=== PATIENT | female | born 1985 | race Caucasian/White ===

== ENCOUNTER → 2016-10-14 | Outpatient (CLI) | payer MEDICARE, MEDICAID ==
[2016-10-14 14:48] LABS: MEAN CORPUSCULAR HEMOGLOBIN 21.1 pg (27.0-33.0); MEAN CORPUSCULAR HGB CONC 29.7 g/dl (32.0-36.5); PLATELET COUNT, AUTOMATED 218 k/mm3 (150-450); RED CELL DISTRIBUTION WIDTH 15.1 % (11.5-14.5); WHITE BLOOD COUNT 8.4 K/mm3 (4.0-10.0)
[2016-10-14 15:25] LABS: ERYTHROCYTE SEDIMENTATION RATE 16 mm/hr (0-20)
[2016-10-14 16:13] LABS: BASO % 0.9 % (0.0-1.0); EOS % 1.3 % (0.0-3.0); LARGE UNSTAINED CELL % 1.5 % (0.0-4.0); MONO % 4.7 % (0.0-5.0); NEUTROPHILS % 69.7 % (36.0-66.0)
[2016-10-14 16:14] LABS: NEUTROPHILS # 5.9 K/mm3 (1.8-7.7)
[2016-10-14 16:15] LABS: LYMPH # 1.8 K/mm3 (1.5-4.5)
[2016-10-14 16:16] LABS: EOS # 0.1 K/mm3 (0.0-0.50); MONO # 0.4 K/mm3 (0.0-0.8)
[2016-10-14 16:17] LABS: LARGE UNSTAINED CELL # 0.1 K/mm3 (0.0-0.4)
[2016-10-14 16:18] LABS: BASO # 0.1 K/mm3 (0.0-0.2); DIFF SLIDE NUMBER 248
[2016-10-14 19:34] LABS: ANISOCYTOSIS 1+; HYPOCHROMASIA 2+; MICROCYTOSIS 3+
== END ==
LOC: M LAB 12:56
PROVIDERS: ATTEND Internal Medicine Infectious Disease
DX: T84.50XD Infection and inflammatory reaction due to unspecified internal joint prosthesis, subsequent encounter (principal); Y83.1 Surgical operation with implant of artificial internal device as the cause of abnormal reaction of the patient, or of later complication, without mention of misadventure at the time of the procedure

== ENCOUNTER → 2016-10-28 | Outpatient (CLI) | payer MEDICARE, MEDICAID ==
[2016-10-28 11:54] LABS: BASO % 0.3 % (0.0-1.0); EOS # 0.1 K/mm3 (0.0-0.50); EOS % 1.7 % (0.0-3.0); LARGE UNSTAINED CELL # 0.1 K/mm3 (0.0-0.4); LARGE UNSTAINED CELL % 1.8 % (0.0-4.0); LYMPH # 1.8 K/mm3 (1.5-4.5); LYMPH % 24.8 % (24.0-44.0); MEAN CORPUSCULAR HEMOGLOBIN 20.2 pg (27.0-33.0); MEAN CORPUSCULAR HGB CONC 28.8 g/dl (32.0-36.5); MEAN CORPUSCULAR VOLUME 70.2 fl (80.0-96.0); MONO # 0.4 K/mm3 (0.0-0.8); MONO % 4.8 % (0.0-5.0); NEUTROPHILS # 4.9 K/mm3 (1.8-7.7); NEUTROPHILS % 66.6 % (36.0-66.0); PLATELET COUNT, AUTOMATED 235 k/mm3 (150-450); RED CELL DISTRIBUTION WIDTH 15.3 % (11.5-14.5); WHITE BLOOD COUNT 7.4 K/mm3 (4.0-10.0)
[2016-10-28 12:15] LABS: ERYTHROCYTE SEDIMENTATION RATE 21 mm/hr (0-20)
== END ==
LOC: M LAB 11:07
PROVIDERS: ATTEND Nurse Practitioner
DX: M86.652 Other chronic osteomyelitis, left thigh (principal)

== ENCOUNTER → 2016-12-21 | Outpatient (CLI) | payer MEDICARE, MEDICAID ==
[2016-12-21 14:59] LABS: MEAN CORPUSCULAR HEMOGLOBIN 19.8 pg (27.0-33.0); MEAN CORPUSCULAR HGB CONC 28.5 g/dl (32.0-36.5); MEAN CORPUSCULAR VOLUME 69.4 fl (80.0-96.0); PLATELET COUNT, AUTOMATED 274 k/mm3 (150-450); RED CELL DISTRIBUTION WIDTH 16.8 % (11.5-14.5); WHITE BLOOD COUNT 7.3 K/mm3 (4.0-10.0)
[2016-12-21 15:59] LABS: ERYTHROCYTE SEDIMENTATION RATE 44 mm/hr (0-20)
[2016-12-21 16:27] LABS: BASOPHILS 1 % (0-4); EOSINOPHILS 1 % (0-5); HYPOCHROMASIA 2+; MICROCYTOSIS 3+
[2016-12-21 16:28] LABS: ANISOCYTOSIS 2+
== END ==
LOC: M LAB 14:28
PROVIDERS: ATTEND Nurse Practitioner
DX: M86.652 Other chronic osteomyelitis, left thigh (principal)

== ENCOUNTER → 2017-01-04 | Outpatient (CLI) | payer MEDICARE, MEDICAID ==
[2017-01-04 14:09] LABS: BASO % 0.5 % (0.0-1.0); EOS # 0.1 K/mm3 (0.0-0.50); LARGE UNSTAINED CELL # 0.1 K/mm3 (0.0-0.4); LARGE UNSTAINED CELL % 1.6 % (0.0-4.0); LYMPH # 1.7 K/mm3 (1.5-4.5); LYMPH % 21.8 % (24.0-44.0); MEAN CORPUSCULAR HEMOGLOBIN 20.2 pg (27.0-33.0); MEAN CORPUSCULAR HGB CONC 28.9 g/dl (32.0-36.5); MONO # 0.3 K/mm3 (0.0-0.8); MONO % 4.5 % (0.0-5.0); NEUTROPHILS # 5.1 K/mm3 (1.8-7.7); NEUTROPHILS % 70.7 % (36.0-66.0); PLATELET COUNT, AUTOMATED 202 k/mm3 (150-450); RED CELL DISTRIBUTION WIDTH 16.7 % (11.5-14.5); WHITE BLOOD COUNT 7.3 K/mm3 (4.0-10.0)
[2017-01-04 14:27] LABS: ERYTHROCYTE SEDIMENTATION RATE 14 mm/hr (0-20)
[2017-01-04 14:32] LABS: ADD MORPHOLOGY? YES
[2017-01-04 16:02] LABS: ANISOCYTOSIS 1+; HYPOCHROMASIA 1+; MICROCYTOSIS 2+
== END ==
LOC: M LAB 13:13
PROVIDERS: ATTEND Nurse Practitioner
DX: M86.652 Other chronic osteomyelitis, left thigh (principal)

== ENCOUNTER → 2017-01-18 | Outpatient (CLI) | payer MEDICARE, MEDICAID ==
[2017-01-18 10:44] LABS: BASO % 0.4 % (0.0-1.0); EOS # 0.1 K/mm3 (0.0-0.50); EOS % 1.9 % (0.0-3.0); LARGE UNSTAINED CELL # 0.1 K/mm3 (0.0-0.4); LARGE UNSTAINED CELL % 1.7 % (0.0-4.0); LYMPH # 1.5 K/mm3 (1.5-4.5); MEAN CORPUSCULAR HEMOGLOBIN 20.2 pg (27.0-33.0); MEAN CORPUSCULAR HGB CONC 29.2 g/dl (32.0-36.5); MONO # 0.2 K/mm3 (0.0-0.8); MONO % 3.8 % (0.0-5.0); NEUTROPHILS # 4.1 K/mm3 (1.8-7.7); NEUTROPHILS % 68.1 % (36.0-66.0); PLATELET COUNT, AUTOMATED 215 k/mm3 (150-450); RED CELL DISTRIBUTION WIDTH 16.5 % (11.5-14.5); WHITE BLOOD COUNT 6.1 K/mm3 (4.0-10.0)
[2017-01-18 10:51] LABS: ADD MORPHOLOGY? YES
[2017-01-18 11:21] LABS: ERYTHROCYTE SEDIMENTATION RATE 16 mm/hr (0-20)
[2017-01-18 11:29] LABS: HYPOCHROMASIA 2+; MICROCYTOSIS 2+; POLYCHROMASIA 1+
== END ==
LOC: M LAB 10:12
PROVIDERS: ATTEND Nurse Practitioner
DX: M86.652 Other chronic osteomyelitis, left thigh (principal)

== ENCOUNTER → 2017-03-15 | Outpatient (CLI) | payer MEDICARE, MEDICAID ==
[2017-03-15 10:59] LABS: BASO % 0.5 % (0.0-1.0); EOS # 0.1 K/mm3 (0.0-0.50); LARGE UNSTAINED CELL # 0.1 K/mm3 (0.0-0.4); LARGE UNSTAINED CELL % 1.3 % (0.0-4.0); LYMPH # 1.9 K/mm3 (1.5-4.5); LYMPH % 22.8 % (24.0-44.0); MEAN CORPUSCULAR HEMOGLOBIN 20.2 pg (27.0-33.0); MEAN CORPUSCULAR HGB CONC 29.4 g/dl (32.0-36.5); MEAN CORPUSCULAR VOLUME 68.7 fl (80.0-96.0); MONO # 0.5 K/mm3 (0.0-0.8); MONO % 5.9 % (0.0-5.0); NEUTROPHILS # 5.6 K/mm3 (1.8-7.7); NEUTROPHILS % 68.4 % (36.0-66.0); PLATELET COUNT, AUTOMATED 233 k/mm3 (150-450); RED CELL DISTRIBUTION WIDTH 16.4 % (11.5-14.5); WHITE BLOOD COUNT 8.2 K/mm3 (4.0-10.0)
[2017-03-15 11:32] LABS: ERYTHROCYTE SEDIMENTATION RATE 14 mm/hr (0-20)
== END ==
LOC: M LAB 10:12
PROVIDERS: ATTEND Nurse Practitioner
DX: M86.652 Other chronic osteomyelitis, left thigh (principal)

== ENCOUNTER → 2017-05-04 | Outpatient (REF) | payer MEDICARE, MEDICAID ==
[2017-05-04 11:00] LABS: URINE PHOSPHOROUS 85.2 MG/DL
[2017-05-04 11:16] LABS: CALCIUM, URINE 12.4 MG/DL
[2017-05-12 14:15] LABS: CREATININE URINE 135.2 mg/dL (Not Estab.)
== END ==
LOC: M LAB REF 09:32
PROVIDERS: ATTEND Internal Medicine Endocrinology, Diabetes & Metabolism
DX: M85.052 Fibrous dysplasia (monostotic), left thigh (principal); Z86.39 Personal history of other endocrine, nutritional and metabolic disease; E66.9 Obesity, unspecified; Z91.89 Other specified personal risk factors, not elsewhere classified

== ENCOUNTER → 2017-05-14 | Outpatient (CLI) | payer MEDICARE, MEDICAID ==
[2017-05-14 12:32] LABS: ADD MANUAL DIFFER YES; MEAN CORPUSCULAR HEMOGLOBIN 19.7 pg (27.0-33.0); MEAN CORPUSCULAR HGB CONC 29.4 g/dl (32.0-36.5); MEAN CORPUSCULAR VOLUME 67.1 fl (80.0-96.0); PLATELET COUNT, AUTOMATED 249 k/mm3 (150-450); RED CELL DISTRIBUTION WIDTH 16.8 % (11.5-14.5)
[2017-05-14 13:00] LABS: EOSINOPHILS 1 % (0-5)
[2017-05-14 13:01] LABS: ANISOCYTOSIS 1+; HYPOCHROMASIA 2+; TEAR DROP CELLS 1+
[2017-05-14 13:02] LABS: ERYTHROCYTE SEDIMENTATION RATE 21 mm/hr (0-20)
== END ==
LOC: M LAB 11:33
PROVIDERS: ATTEND Nurse Practitioner
DX: M85.652 Other cyst of bone, left thigh (principal)

== ENCOUNTER → 2017-06-01 | Outpatient (CLI) | payer MEDICARE, MEDICAID ==
[2017-06-01 14:54] LABS: FREE T4 1.09 NG/DL (0.76-1.46)
== END ==
LOC: M LAB 13:41
PROVIDERS: ATTEND Internal Medicine Endocrinology, Diabetes & Metabolism
DX: Z86.39 Personal history of other endocrine, nutritional and metabolic disease (principal)

== ENCOUNTER → 2017-07-16 | Outpatient (CLI) | payer MEDICARE, MEDICAID ==
[2017-07-16 16:55] LABS: ANION GAP 8 MEQ/L (8-16); BLOOD UREA NITROGEN 12 MG/DL (7-18); CALCIUM LEVEL 9.3 MG/DL (8.5-10.1); CARBON DIOXIDE LEVEL 28 MEQ/L (21-32); CHLORIDE LEVEL 104 MEQ/L (98-107); CREATININE FOR GFR 0.53 MG/DL (0.55-1.02); FREE T4 1.03 NG/DL (0.76-1.46); GLOMERULAR FILTRATION RATE > 60.0 (>60); GLUCOSE, FASTING 96 MG/DL (70-105); POTASSIUM SERUM 3.9 MEQ/L (3.5-5.1); SODIUM LEVEL 140 MEQ/L (136-145)
== END ==
LOC: M LAB 15:51
PROVIDERS: ATTEND Internal Medicine Endocrinology, Diabetes & Metabolism
DX: Z86.39 Personal history of other endocrine, nutritional and metabolic disease (principal)

== ENCOUNTER → 2017-09-15 | Outpatient (CLI) | payer MEDICARE, MEDICAID ==
[2017-09-15 16:59] LABS: ALBUMIN 4.2 GM/DL (3.2-5.2); ALBUMIN/GLOBULIN RATIO 1.08 (1.00-1.93); ALKALINE PHOSPHATASE 74 U/L (45-117); ALT/SGPT 16 U/L (12-78); ANION GAP 9 MEQ/L (8-16); AST/SGOT 12 U/L (7-37); BILIRUBIN,TOTAL 0.4 MG/DL (0.2-1.0); BLOOD UREA NITROGEN 9 MG/DL (7-18); CALCIUM LEVEL 8.8 MG/DL (8.5-10.1); CARBON DIOXIDE LEVEL 25 MEQ/L (21-32); CHLORIDE LEVEL 105 MEQ/L (98-107); CREATININE FOR GFR 0.58 MG/DL (0.55-1.02); GLOMERULAR FILTRATION RATE > 60.0 (>60); GLUCOSE, FASTING 89 MG/DL (70-105); SODIUM LEVEL 139 MEQ/L (136-145); TOTAL PROTEIN 8.1 GM/DL (6.4-8.2)
[2017-09-15 17:42] LABS: MEAN CORPUSCULAR HEMOGLOBIN 18.1 pg (27.0-33.0); MEAN CORPUSCULAR HGB CONC 28.4 g/dl (32.0-36.5); MEAN CORPUSCULAR VOLUME 63.8 fl (80.0-96.0); PLATELET COUNT, AUTOMATED 284 10^3/uL (150-450); RED CELL DISTRIBUTION WIDTH 20.3 % (11.5-14.5); WHITE BLOOD COUNT 13.3 10^3/uL (4.0-10.0)
[2017-09-15 17:46] LABS: PLT DIST POS FLAG
== END ==
LOC: M LAB 15:55
PROVIDERS: ATTEND Nurse Practitioner Family
DX: D64.9 Anemia, unspecified (principal)

== ENCOUNTER → 2017-09-23 | Outpatient (REF) | payer MEDICARE, MEDICAID ==
[2017-09-23 13:44] LABS: RETIC HEMOGLOBIN EQUIVALENT 19.2 pg (24-36); RETICULOCYTE % 1.5 % (0.5-1.5)
[2017-09-23 14:04] LABS: FERRITIN 5 NG/ML (8-252); PERCENT SATURATION 3.6 % (13.2-45.0); TOTAL IRON BINDING CAPACITY 468 UG/DL (250-450); TOTAL PROTEIN 8.1 GM/DL (6.4-8.2)
[2017-09-28 08:06] LABS: HEMOGLOBIN A 98.2 % (96.4-98.8); SJOGREN'S ANTI SS-A <0.2 AI (0.0-0.9); SJOGREN'S ANTI SS-B <0.2 AI (0.0-0.9)
[2017-09-29 11:15] LABS: ALBUMIN 4.52 GM/DL (3.29-5.55); ALBUMIN % 55.8 % (55.8-66.1); GAMMA GLOBULIN % 16.7 % (11.1-18.8)
== END ==
LOC: M LAB REF 13:05
PROVIDERS: ATTEND Internal Medicine Medical Oncology
DX: D64.9 Anemia, unspecified (principal)

== ENCOUNTER → 2017-10-05 | Outpatient (CLI) | payer MEDICAID, MEDICARE | LOC: M LAB 11:35 | DX: E03.9 Hypothyroidism, unspecified (principal) | CPT/HCPCS: 84443 ==

== ENCOUNTER → 2017-10-27 | Outpatient (CLI) | payer OTHER, MEDICAID, MEDICARE | LOC: M RAD 13:55 | DX: N92.0 Excessive and frequent menstruation with regular cycle (principal) | CPT/HCPCS: 76856 ==

== ENCOUNTER → 2017-11-08 | Outpatient (CLI) | payer MEDICARE, OTHER ==
[2017-11-08 12:18] LABS: BASO % 0.3 % (0.0-1.0); EOS # 0.1 10^3/uL (0.0-0.50); EOS % 1.3 % (0.0-3.0); HEMATOCRIT 41.8 % (36.0-47.0); HEMOGLOBIN 12.8 g/dl (12.0-16.0); IMMATURE GRANULOCYTE % 0.3 % (0-0); LYMPH # 1.6 10^3/uL (1.5-4.5); MEAN CORPUSCULAR HEMOGLOBIN 23.1 pg (27.0-33.0); MEAN CORPUSCULAR HGB CONC 30.6 g/dl (32.0-36.5); MEAN CORPUSCULAR VOLUME 75.3 fl (80.0-96.0); MONO # 0.5 10^3/uL (0.0-0.8); MONO % 7.2 % (0.0-5.0); NEUTROPHILS # 4.1 10^3/uL (1.8-7.7); NEUTROPHILS % 64.9 % (36.0-66.0); PLATELET COUNT, AUTOMATED 145 10^3/uL (150-450); RED BLOOD COUNT 5.55 10^6/uL (4.00-5.40); RED CELL DISTRIBUTION WIDTH 27.2 % (11.5-14.5); WHITE BLOOD COUNT 6.3 10^3/uL (4.0-10.0)
[2017-11-08 12:53] LABS: C REACTIVE PROTEIN QUANTITATIV < 0.30 MG/DL (0.00-0.30)
[2017-11-08 13:21] LABS: ERYTHROCYTE SEDIMENTATION RATE 4 mm/hr (0-20)
== END ==
LOC: M LAB 11:32
DX: M86.652 Other chronic osteomyelitis, left thigh (principal)
CPT/HCPCS: 86140

== ENCOUNTER → 2017-11-15 | Outpatient (CLI) | payer MEDICARE, OTHER ==
[2017-11-15 15:15] LABS: FREE T4 1.16 NG/DL (0.76-1.46)
== END ==
LOC: M LAB 13:03
DX: E03.9 Hypothyroidism, unspecified (principal)
CPT/HCPCS: 84443

== ENCOUNTER → 2017-11-26 | Outpatient (REF) | payer MEDICARE, OTHER ==
[2017-11-26 14:31] LABS: FERRITIN 91 NG/ML (8-252); IRON (FE) 40 UG/DL (50-170); PERCENT SATURATION 11.9 % (13.2-45.0); TOTAL IRON BINDING CAPACITY 336 UG/DL (250-450)
== END ==
LOC: M LAB REF 13:39
DX: D50.9 Iron deficiency anemia, unspecified (principal)
CPT/HCPCS: 83550

== ENCOUNTER → 2017-11-30 | Outpatient (REF) | payer MEDICARE, OTHER ==
[2017-12-03 00:07] LABS: HPV HYBRID CAPTURE II Negative (Negative)
== END ==
LOC: M LAB REF 14:41
DX: Z12.4 Encounter for screening for malignant neoplasm of cervix (principal)
CPT/HCPCS: G0123

== ENCOUNTER 2017-12-20 13:00 | Day surgery (SDC) | payer MEDICARE, OTHER ==
[2017-12-20] MEDS ORDERED: PROPOFOL 200 MG/20 ML VIAL As Ordered ×2 (13:06)
[2017-12-20] MEDS ORDERED: dexameTHASONE 4 MG/ML 1ML VIAL (J1100) As Ordered ×2 (13:06)
[2017-12-20] MEDS ORDERED: LIDOCAINE 2% INJ 100 MG/5 ML SDV (FOR ANES.) As Ordered ×2 (13:06)
[2017-12-20] MEDS ORDERED: fentaNYL 100 MCG/2 ML INJECTION (J3010) As Ordered ×4 (13:06→14:56)
[2017-12-20] MEDS ORDERED: MIDAZOLAM INJ 2 MG/2 ML VIAL (J2250) As Ordered ×2 (13:06)
[2017-12-20] MEDS ORDERED: ROCURONIUM BROMIDE 50 MG/5 ML VIAL As Ordered ×4 (13:06→15:07)
[2017-12-20] MEDS: LIDOCAINE 1% SDV 5 ML VIAL SQ ×2 (13:15)
[2017-12-20] MEDS: LR 1,000 ML IV ×6 (13:26→17:45)
[2017-12-20 13:44] LABS: HEMATOCRIT 43.8 % (36.0-47.0); MEAN CORPUSCULAR VOLUME 81.4 fl (80.0-96.0); PLATELET COUNT, AUTOMATED 213 10^3/uL (150-450); RED BLOOD COUNT 5.38 10^6/uL (4.00-5.40); RED CELL DISTRIBUTION WIDTH 19.7 % (11.5-14.5); WHITE BLOOD COUNT 7.2 10^3/uL (4.0-10.0)
[2017-12-20 14:10] LABS: CONTROL LINE HCG INT CTR LINE PRESENT; HCG, SERUM QUALITATIVE NEGATIVE (NEGATIVE)
[2017-12-20] MEDS: BUPIVACAINE HCL 0.25% 30 ML VIAL As Ordered ×2 (15:00)
[2017-12-20] MEDS ORDERED: ESMOLOL INJ 100MG/10ML VIAL As Ordered ×2 (15:18)
[2017-12-20] MEDS ORDERED: LABETALOL HCL 100 MG/20 ML VIAL As Ordered ×2 (15:55)
[2017-12-20] MEDS ORDERED: ONDANSETRON 4MG/2ML VIAL (J2405) As Ordered ×2 (16:39)
[2017-12-20] MEDS ORDERED: GLYCOPYRROLATE INJ 0.2 MG/ML 2 ML VIAL As Ordered ×2 (16:39)
[2017-12-20] MEDS ORDERED: KETOROLAC 60 MG/2 ML VIAL (J1885) As Ordered ×2 (16:40)
[2017-12-20] MEDS ORDERED: PERCOCET 5MG/325MG TAB As Ordered ×2 (17:26)
[2017-12-20] MEDS: PERCOCET 5MG/325MG TAB PO ×4 (17:35→18:05)
[2017-12-20] MEDS ORDERED: zolPIDEM TARTRATE 5 MG TAB PO ×2 (17:45)
[2017-12-20] MEDS ORDERED: MEPERIDINE INJ 25 MG/ML VIAL (J2175) IV ×2 (17:45)
[2017-12-20] MEDS ORDERED: PERCOCET 5MG/325MG TAB PO ×2 (17:45)
[2017-12-20] MEDS ORDERED: METOCLOPRAMIDE INJ 10MG/2ML VIAL (J2765) IV ×2 (17:45)
[2017-12-20] MEDS ORDERED: ONDANSETRON 4MG/2ML VIAL (J2405) IV ×2 (17:45)
[2017-12-20] MEDS: fentaNYL 100 MCG/2 ML INJECTION (J3010) IV ×2 (17:58)
[2017-12-20] MEDS: KETOROLAC 30 MG/ML VIAL (J1885) IV ×2 (23:14)
[2017-12-21] MEDS: PROMETHAZINE INJ 25 MG/ML VIAL (J2550) IV ×2 (01:31)
[2017-12-21] MEDS: PERCOCET 5MG/325MG TAB PO ×4 (01:32→06:01)
[2017-12-21] MEDS: KETOROLAC 30 MG/ML VIAL (J1885) IV ×2 (06:00)
[2017-12-21 07:31] LABS: HEMATOCRIT 33.9 % (36.0-47.0); MEAN CORPUSCULAR HEMOGLOBIN 26.5 pg (27.0-33.0); MEAN CORPUSCULAR HGB CONC 32.2 g/dl (32.0-36.5); MEAN CORPUSCULAR VOLUME 82.5 fl (80.0-96.0); PLATELET COUNT, AUTOMATED 196 10^3/uL (150-450); RED BLOOD COUNT 4.11 10^6/uL (4.00-5.40); RED CELL DISTRIBUTION WIDTH 19.7 % (11.5-14.5); WHITE BLOOD COUNT 8.8 10^3/uL (4.0-10.0)
[2017-12-21 07:40] LABS: HEMOGLOBIN 10.9 g/dl (12.0-16.0)
== END 2017-12-21 10:08 | disposition home or self-care (01) ==
LOC: M SDC 13:00 → M PED 18:20
DX: N93.9 Abnormal uterine and vaginal bleeding, unspecified (principal); E03.9 Hypothyroidism, unspecified; Z87.891 Personal history of nicotine dependence; Z88.5 Allergy status to narcotic agent; Z79.899 Other long term (current) drug therapy
CPT/HCPCS: 58571

== ENCOUNTER → 2017-12-29 | Outpatient (CLI) | payer MEDICARE, OTHER | LOC: M LAB 10:29 | DX: E03.9 Hypothyroidism, unspecified (principal) | CPT/HCPCS: 84443 ==

== ENCOUNTER → 2018-01-25 | Outpatient (REF) | payer OTHER ==
[2018-01-25 13:37] LABS: INR 1.02; PROTHROMBIN TIME 13.5 SECONDS (12.4-14.5)
[2018-01-25 13:38] LABS: PARTIAL THROMBOPLASTIN TIME 30.9 SECONDS (26.8-37.9)
[2018-01-25 13:44] LABS: FERRITIN 33 NG/ML (8-252); IRON (FE) 46 UG/DL (50-170); PERCENT SATURATION 13.1 % (13.2-45.0); TOTAL IRON BINDING CAPACITY 352 UG/DL (250-450)
[2018-01-27 08:06] LABS: F8 ACTIVITY FOR F8 PANEL 68 % (57-163); F8 ACTIVITY vWB FOR F8 PANEL 56 % (50-200); F8 ANTIGEN FOR F8 PANEL 67 % (50-200); INTERPRETATION: Note (.)
== END ==
LOC: M LAB REF 12:59
DX: D50.9 Iron deficiency anemia, unspecified (principal)
CPT/HCPCS: 83550

== ENCOUNTER → 2018-02-15 | Outpatient (CLI) | payer OTHER ==
[2018-02-15 15:06] LABS: RHEUMATOID FACTOR QUANT < 10.0 IU/ML (<15.0)
[2018-02-15 15:42] LABS: ERYTHROCYTE SEDIMENTATION RATE 8 mm/hr (0-20)
[2018-02-16 10:14] LABS: ANTINUCLEAR ANTIBODIES DIRECT Negative (Negative)
== END ==
LOC: M LAB 13:49
DX: M25.541 Pain in joints of right hand (principal); M25.542 Pain in joints of left hand
CPT/HCPCS: 36415

== ENCOUNTER → 2018-04-26 | Outpatient (REF) | payer MEDICARE, MEDICAID ==
[2018-04-26 10:53] LABS: FERRITIN 68 NG/ML (8-252); IRON (FE) 58 UG/DL (50-170); PERCENT SATURATION 16.5 % (13.2-45.0); TOTAL IRON BINDING CAPACITY 351 UG/DL (250-450)
== END ==
LOC: M LAB REF 10:33
DX: D50.0 Iron deficiency anemia secondary to blood loss (chronic) (principal)
CPT/HCPCS: 83550

== ENCOUNTER → 2018-05-26 | Outpatient (CLI) | payer MEDICARE, MEDICAID, OTHER ==
[2018-05-26 15:55] LABS: HEMATOCRIT 41.7 % (36.0-47.0); HEMOGLOBIN 14.3 g/dl (12.0-15.5); MEAN CORPUSCULAR HEMOGLOBIN 29.5 pg (27.0-33.0); MEAN CORPUSCULAR HGB CONC 34.3 g/dl (32.0-36.5); PLATELET COUNT, AUTOMATED 174 10^3/uL (150-450); RED BLOOD COUNT 4.85 10^6/uL (4.00-5.40); RED CELL DISTRIBUTION WIDTH 12.8 % (11.5-14.5)
[2018-05-26 16:13] LABS: ESTIMATED AVERAGE GLUCOSE 94 MG/DL (60-110); HEMOGLOBIN A1c 4.9 %
[2018-05-26 16:29] LABS: ALBUMIN 3.8 GM/DL (3.2-5.2); ALBUMIN/GLOBULIN RATIO 1.12 (1.00-1.93); ALKALINE PHOSPHATASE 68 U/L (45-117); ALT/SGPT 16 U/L (12-78); ANION GAP 9 MEQ/L (8-16); AST/SGOT 10 U/L (7-37); BILIRUBIN,TOTAL 0.4 MG/DL (0.2-1.0); BLOOD UREA NITROGEN 18 MG/DL (7-18); CALCIUM LEVEL 8.8 MG/DL (8.5-10.1); CARBON DIOXIDE LEVEL 27 MEQ/L (21-32); CHLORIDE LEVEL 105 MEQ/L (98-107); CREATININE FOR GFR 1.07 MG/DL (0.55-1.30); FREE T4 1.12 NG/DL (0.76-1.46); GLOMERULAR FILTRATION RATE > 60.0 (>60); GLUCOSE, FASTING 87 MG/DL (70-100); POTASSIUM SERUM 3.9 MEQ/L (3.5-5.1); SODIUM LEVEL 141 MEQ/L (136-145); TOTAL PROTEIN 7.2 GM/DL (6.4-8.2)
== END ==
LOC: M LAB 14:59
DX: E03.9 Hypothyroidism, unspecified (principal); D64.9 Anemia, unspecified; R73.9 Hyperglycemia, unspecified
CPT/HCPCS: 84443

== ENCOUNTER → 2018-06-28 | Outpatient (REF) | payer MEDICARE, MEDICAID ==
[2018-06-28 19:17] LABS: APPEARANCE, URINE CLEAR (CLEAR); BACTERIA, URINE AUTO NEGATIVE (NEGATIVE); BILIRUBIN, URINE AUTO NEGATIVE (NEGATIVE); BLOOD, URINE BLOOD NEGATIVE (NEGATIVE); COLOR, URINE YELLOW (YELLOW); GLUCOSE, URINE (UA) AUTO NEGATIVE (NEGATIVE); KETONE, URINE AUTO NEGATIVE (NEGATIVE); LEUKOCYTE ESTERASE, URINE AUTO NEGATIVE (NEGATIVE); NITRITE, URINE AUTO NEGATIVE (NEGATIVE); PROTEIN, URINE AUTO NEGATIVE (NEGATIVE); RBC, URINE AUTO 0 /HPF (0-3); SPECIFIC GRAVITY URINE AUTO 1.009 (1.002-1.035); SQUAMOUS EPITHELIAL CELL UR AU 1 /HPF (0-6); UROBILINOGEN, URINE AUTO 0.2 mg/dL (0.0-2.0); WBC, URINE AUTO 0 /HPF (0-3)
== END ==
LOC: M LAB REF 18:43
DX: N39.0 Urinary tract infection, site not specified (principal)
CPT/HCPCS: 81001

== ENCOUNTER → 2018-08-23 | Outpatient (CLI) | payer MEDICARE, OTHER | LOC: M LRY 12:14 | DX: M25.50 Pain in unspecified joint (principal); R93.6 Abnormal findings on diagnostic imaging of limbs; Z98.890 Other specified postprocedural states | CPT/HCPCS: 72202; 86255 ==

== ENCOUNTER → 2018-08-23 | Outpatient (REF) | payer MEDICARE, OTHER ==
[2018-08-23 16:52] LABS: BASO % 0.5 % (0.0-1.0); EOS # 0.1 10^3/uL (0.0-0.50); EOS % 0.7 % (0.0-3.0); HEMATOCRIT 44.9 % (36.0-47.0); HEMOGLOBIN 15.1 g/dl (12.0-15.5); IMMATURE GRANULOCYTE % 0.4 % (0-3.0); LYMPH # 2.1 10^3/uL (1.5-4.5); LYMPH % 28.7 % (24.0-44.0); MEAN CORPUSCULAR HEMOGLOBIN 29.8 pg (27.0-33.0); MEAN CORPUSCULAR HGB CONC 33.6 g/dl (32.0-36.5); MEAN CORPUSCULAR VOLUME 88.7 fl (80.0-96.0); MONO # 0.4 10^3/uL (0.0-0.8); MONO % 5.3 % (0.0-5.0); NEUTROPHILS # 4.8 10^3/uL (1.8-7.7); NEUTROPHILS % 64.4 % (36.0-66.0); PLATELET COUNT, AUTOMATED 189 10^3/uL (150-450); RED BLOOD COUNT 5.06 10^6/uL (4.00-5.40); RED CELL DISTRIBUTION WIDTH 12.7 % (11.5-14.5); WHITE BLOOD COUNT 7.4 10^3/uL (4.0-10.0)
[2018-08-23 17:50] LABS: ERYTHROCYTE SEDIMENTATION RATE 1 mm/hr (0-20)
[2018-08-23 18:23] LABS: C REACTIVE PROTEIN QUANTITATIV < 0.30 MG/DL (0.00-0.30)
== END ==
LOC: M SFHCLERA 11:55
DX: M19.90 Unspecified osteoarthritis, unspecified site (principal); R76.8 Other specified abnormal immunological findings in serum; M25.50 Pain in unspecified joint
CPT/HCPCS: 86255

== ENCOUNTER → 2018-11-29 | Outpatient (CLI) | payer MEDICARE, MEDICAID ==
[~2018-11-29] MED LIST: LEVO100T5 PO; OXYC1TAB23 PO; VITA100067 PO
[2018-11-29 11:05] LABS: HEMATOCRIT 42.2 % (36.0-47.0); HEMOGLOBIN 13.9 g/dl (12.0-15.5); MEAN CORPUSCULAR HEMOGLOBIN 29.7 pg (27.0-33.0); MEAN CORPUSCULAR HGB CONC 32.9 g/dl (32.0-36.5); MEAN CORPUSCULAR VOLUME 90.2 fl (80.0-96.0); PLATELET COUNT, AUTOMATED 158 10^3/uL (150-450); RED BLOOD COUNT 4.68 10^6/uL (4.00-5.40)
[2018-11-29 11:39] LABS: ALBUMIN 3.9 GM/DL (3.2-5.2); ALT/SGPT 24 U/L (12-78); BILIRUBIN,TOTAL 0.4 MG/DL (0.2-1.0); BLOOD UREA NITROGEN 17 MG/DL (7-18); CALCIUM LEVEL 8.8 MG/DL (8.5-10.1); CARBON DIOXIDE LEVEL 27 MEQ/L (21-32); CHLORIDE LEVEL 104 MEQ/L (98-107); CHOLESTEROL LEVEL 178 MG/DL (<200); CHOLESTEROL RISK RATIO 2.918 (<5); CPK CREATINE PHOSPHOKINASE 62 U/L (26-192); CREATININE FOR GFR 0.57 MG/DL (0.55-1.30); FREE T4 1.13 NG/DL (0.76-1.46); GLOMERULAR FILTRATION RATE > 60.0 (>60); GLUCOSE, FASTING 88 MG/DL (70-100); HDL CHOLESTEROL 61 MG/DL (>40); LDL CHOLESTEROL 105 MG/DL (<100); NON-HDL-C 117 MG/DL; POTASSIUM SERUM 4.2 MEQ/L (3.5-5.1); SODIUM LEVEL 138 MEQ/L (136-145); TOTAL PROTEIN 7.3 GM/DL (6.4-8.2); TRIGLYCERIDES LEVEL 60 MG/DL (<150)
[2018-11-29 11:41] LABS: TOTAL 25(OH) VITAMIN D 17.4 NG/ML (30.0-100.0)
== END ==
LOC: M LAB 10:17
PROVIDERS: ATTEND Nurse Practitioner Family
DX: I10 Essential (primary) hypertension (principal); E78.5 Hyperlipidemia, unspecified; E78.00 Pure hypercholesterolemia, unspecified; E55.9 Vitamin D deficiency, unspecified

== ENCOUNTER → 2018-12-19 | Outpatient (CLI) | payer MEDICARE, MEDICAID ==
--- NOTE | 2018-12-19 09:10 | REP ---
LEFT UPPER QUADRANT ULTRASOUND: Real-time sonographic evaluation of the left upper quadrant performed. Spleen is upper limits of normal in size to slightly enlarged, with a length of 13.4 cm. No intrinsic abnormality is seen. Left kidney is normal in size and echotexture measuring 12.1 x 6.0 x 4.7 cm. There is no hydronephrosis or nephrolithiasis identified. No free fluid or fluid collection is seen. IMPRESSION: Spleen upper limits of normal in size to slightly enlarged. Otherwise negative left upper quadrant ultrasound. Electronically Signed by Marquise Farrar MD 12/21/2018 09:51 A
== END ==
LOC: M RAD 07:15
PROVIDERS: ATTEND Internal Medicine Hematology & Oncology
DX: R10.13 Epigastric pain (principal)

== ENCOUNTER → 2019-02-17 | Outpatient (CLI) | payer MEDICARE, MEDICAID ==
[~2019-02-17] MED LIST changes: +OTEZ1TAB3 PO; +VITA-198 PO
--- NOTE | 2019-02-17 18:41 | ECHO ---
DATE OF PROCEDURE: 02/17/2019 REFERRING PHYSICIAN: Idalia Wadsworth INDICATION: Family history of Milady-Danlos syndrome, anemia Height 165 cm, weight 86 kg. DIMENSIONS: IVS: 0.9 LV: 5.0 LVPW: 0.9 LA: 3.4 Aorta: 3.0 Ascending aorta: 3.2 IVC: 1.9 Mitral E wave velocity: 91 A wave: 61 E prime septal: 10.9 E prime lateral: 13.7 FINDINGS: The study is of good technical quality. The patient is in sinus rhythm. Left ventricle is of normal size and systolic function. Estimated left ventricular ejection fraction (LVEF) 60-65%. Right ventricle is normal size and systolic function. Both atria appear normal. All four cardiac valves were well seen and appear normal. No pericardial effusion is noted. Aortic root is normal. Visualized segment of ascending aorta and aortic arch appear normal. Abdominal aorta was not well seen. Doppler interrogation of aortic valve reveals no stenosis or insufficiency. There is also no mitral stenosis or insufficiency. Trace tricuspid insufficiency is present. Calculated pulmonary artery pressure is within normal limits. Pulmonic valve is functionally competent. Mitral inflow pattern and tissue Doppler imaging of mitral annulus revealed normal diastolic function. CONCLUSIONS: 1. Study is of good technical quality. 2. Normal left ventricular (LV) size with preserved LV systolic and diastolic function. 3. No significant valvular disease. 4. Normal central venous pressure and likely normal pulmonary artery pressure. 5. No evidence for dilatation of aortic root or ascending aorta. COMMENT: Subacute bacterial endocarditis (SBE) prophylaxis is not recommended.
== END ==
LOC: M CARPUL 10:29
PROVIDERS: ATTEND Internal Medicine Hematology & Oncology
DX: D64.9 Anemia, unspecified (principal); Z82.79 Family history of other congenital malformations, deformations and chromosomal abnormalities; D69.9 Hemorrhagic condition, unspecified; R07.81 Pleurodynia; R01.1 Cardiac murmur, unspecified

== ENCOUNTER → 2019-07-13 | Outpatient (REF) | payer MEDICARE, MEDICAID ==
[2019-07-14 09:34] LABS: HEPATITIS B SURFACE ANTIBODY NEGATIVE (POSITIVE); HEPATITIS B SURFACE ANTIGEN NEGATIVE (NEGATIVE); HIV 1&2 SCREEN CENTAUR NEGATIVE (NEGATIVE)
[2019-07-14 09:41] LABS: HEPATITIS C VIRUS ABY INDEX 1.4 INDEX (<0.8)
== END ==
LOC: M SFHCPLAZ 09:00
PROVIDERS: ATTEND Dermatology
DX: Z79.899 Other long term (current) drug therapy (principal)
CPT/HCPCS: 36415; 86480; 86704; 86706; 86803; 87340; 87389; 87521; G0463

== ENCOUNTER → 2019-08-22 | Outpatient (REF) | payer MEDICARE, MEDICAID | LOC: M LAB REF 18:24 | PROVIDERS: ATTEND Dermatology | DX: D22.72 Melanocytic nevi of left lower limb, including hip (principal) ==

== ENCOUNTER → 2019-11-24 | Outpatient (CLI) | payer MEDICARE, MEDICAID ==
[2019-11-24 15:14] LABS: HEMATOCRIT 44.8 % (36.0-47.0); HEMOGLOBIN 15.1 g/dl (12.0-15.5); MEAN CORPUSCULAR HGB CONC 33.7 g/dl (32.0-36.5); MEAN CORPUSCULAR VOLUME 86.2 fl (80.0-96.0); PLATELET COUNT, AUTOMATED 205 10^3/uL (150-450); WHITE BLOOD COUNT 6.9 10^3/uL (4.0-10.0)
[2019-11-24 16:08] LABS: ALT/SGPT 29 U/L (12-78); BILIRUBIN,TOTAL 0.6 MG/DL (0.2-1.0); BLOOD UREA NITROGEN 19 MG/DL (7-18); CALCIUM LEVEL 9.4 MG/DL (8.5-10.1); CARBON DIOXIDE LEVEL 25 MEQ/L (21-32); CHLORIDE LEVEL 109 MEQ/L (98-107); CREATININE FOR GFR 0.63 MG/DL (0.55-1.30); GLOMERULAR FILTRATION RATE > 60.0 (>60); GLUCOSE, FASTING 114 MG/DL (70-100); POTASSIUM SERUM 4.4 MEQ/L (3.5-5.1); SODIUM LEVEL 140 MEQ/L (136-145); TOTAL PROTEIN 8.1 GM/DL (6.4-8.2)
[2019-11-24 16:09] LABS: ALBUMIN 4.3 GM/DL (3.2-5.2)
== END ==
LOC: M LAB 14:48
PROVIDERS: ATTEND Nurse Practitioner Family
DX: E03.9 Hypothyroidism, unspecified (principal); K21.9 Gastro-esophageal reflux disease without esophagitis; R51 Headache; R11.0 Nausea

== ENCOUNTER → 2020-03-09 | Outpatient (CLI) | payer MEDICARE, MEDICAID ==
[~2020-03-09] MED LIST changes: +HUMI40KI SC; +LEVO112T2 PO; +NORC1TAB7 PO; +VITAD1000T PO; +ZONI50CA11 PO
== END ==
LOC: M LABSMTC 09:28
PROVIDERS: ATTEND Anesthesiology
DX: Z01.818 Encounter for other preprocedural examination (principal); Z11.59 Encounter for screening for other viral diseases
CPT/HCPCS: C9803; U0003

== ENCOUNTER → 2020-03-11 | Outpatient (CLI) | payer MEDICARE, MEDICAID ==
[2020-03-11 11:04] LABS: COLLAGEN EPINEPHRINE 129 SECONDS (74-162)
== END ==
LOC: M LAB 10:20
PROVIDERS: ATTEND Surgery
DX: Z01.818 Encounter for other preprocedural examination (principal); D69.1 Qualitative platelet defects; K80.10 Calculus of gallbladder with chronic cholecystitis without obstruction

== ENCOUNTER 2020-03-12 08:59 | Day surgery (SDC) | payer MEDICARE, MEDICAID ==
[~2020-03-12] VITALS: Ht 167.6 cm; Wt 105.3 kg
[~2020-03-12 08:59] MED LIST changes: +DESMOPRESSIN ACETATE IV ONE; +LIDOCAINE 1% MDV 20ML VIAL SQ PRN; +LR 1,000 ML IV SCH; -NORC1TAB7 PO; +NS IV ONE
[2020-03-12 09:54] LABS: COLLAGEN EPINEPHRINE 137 SECONDS (74-162)
[2020-03-12] MEDS ORDERED: propofoL 200 MG/20 ML VIAL As Ordered ONE (13:04)
[2020-03-12] MEDS ORDERED: LIDOCAINE 2% 100MG/5ML SDV (FOR ANES.) As Ordered ONE (13:04)
[2020-03-12] MEDS ORDERED: fentaNYL 100 MCG/2 ML INJECTION (J3010) As Ordered ONE ×3 (13:04→18:42)
[2020-03-12] MEDS ORDERED: MIDAZOLAM INJ 2MG/2ML VIAL (J2250 PER 1MG) As Ordered ONE (13:04)
[2020-03-12] MEDS ORDERED: ROCURONIUM BROMIDE 50 MG/5 ML VIAL As Ordered ONE ×2 (13:04→17:05)
[2020-03-12] MEDS ORDERED: HYDROmorphone HCL 2 MG/ML 1ML VIAL (J1170) As Ordered ONE (13:05)
[2020-03-12] MEDS ORDERED: ONDANSETRON 4MG/2ML VIAL As Ordered ONE ×2 (13:05→18:32)
[2020-03-12] MEDS ORDERED: dexameTHASONE 4 MG/ML 1ML VIAL (J1100 PER 1MG) As Ordered ONE (13:05)
[2020-03-12] MEDS ORDERED: BUPIVACAINE HCL 0.25% 30ML VIAL As Ordered ONE (14:12)
[2020-03-12] MEDS ORDERED: NORC1TAB7 PO (16:08)
[2020-03-12] MEDS ORDERED: ACETAMINOPHEN 1000MG 100ML IV BTL (OFIRMEV) (J0131 PER 10MG) As Ordered ONE (16:44)
[2020-03-12] MEDS ORDERED: SUGAMMADEX SODIUM 500 MG/5 ML VIAL (BRIDION) As Ordered ONE (16:47)
[2020-03-12] MEDS ORDERED: METOCLOPRAMIDE INJ 10MG/2ML VIAL (J2765 PER 1) As Ordered ONE (18:33)
[2020-03-12] MEDS ORDERED: oxyCODONE 5MG TAB As Ordered ONE (18:42)
[2020-03-12] MEDS ORDERED: fentaNYL 100 MCG/2 ML INJECTION (J3010) IV PRN (19:00)
[2020-03-12] MEDS ORDERED: METOCLOPRAMIDE INJ 10MG/2ML VIAL (J2765 PER 1) IV PRN (19:00)
[2020-03-12] MEDS ORDERED: LR 1,000 ML IV SCH (19:00)
[2020-03-12] MEDS ORDERED: NORCO, ANEXSIA 5/325MG TABLET (HYDROcodone/ACETAMINOPHEN) PO PRN (19:00)
[2020-03-12] MEDS ORDERED: ONDANSETRON 4MG/2ML VIAL IV PRN (19:00)
[2020-03-12] MEDS ORDERED: ACETAMINOPHEN TAB 650MG DOSE (2X325MG) PO PRN (19:00)
[2020-03-12] MEDS ORDERED: HYDROMORPHONE HCL 0.5 MG/ 0.5 ML SYRINGE (J1170 PER 1) IV PRN (19:00)
[2020-03-12] MEDS: oxyCODONE 5MG TAB PO PRN ×2 (19:08→19:36)
[2020-03-12 20:30] VITALS: BP 136/72
--- NOTE | 2020-03-16 13:17 | RO ---
DATE OF PROCEDURE: 03/12/2020 PREOPERATIVE DIAGNOSIS: Symptomatic gallstones. POSTOPERATIVE DIAGNOSIS: Cholelithiasis with chronic cholecystitis. PROCEDURE PERFORMED: Robotic-assisted laparoscopic cholecystectomy. SURGEON: Dr. Taylor DEATH SURVEYS CODER: ANESTHESIA: General. INDICATIONS FOR THE PROCEDURE: Patient is a 35-year-old woman who reported a history of intermittent episodes of upper abdominal pain. More recently the pains have come more frequently and it frequently awakens her at night. A CT scan done at [facility] on 12/15/2019 confirmed cholelithiasis. She is now for a robotic-assisted laparoscopic cholecystectomy. OPERATIVE PROCEDURE: The patient was brought to the operating room and placed on the table in a supine position. 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 She was placed supine on the operating table. She was placed under general endotracheal anesthesia. The patient's abdomen was prepped and draped in a sterile fashion. 0.25% Marcaine was infiltrated ate each of the trocar sites as needed. Initial entry into the abdomen was in the left upper quadrant. A short transverse incision was made and a Veress needle was inserted without difficulty. After positive hanging drop test the abdomen was insufflated with carbon dioxide gas. Once the abdomen had been inflated, the Veress needle was removed and an 8-mm port was placed over 5- mm scope and advanced through the abdominal wall without difficulty. Initial examination showed no evidence of Veress needle injury. The liver appeared normal. The gallbladder was not initially seen. Three additional trocars were then placed with one just above the umbilicus. A third in the medial right lower quadrant and the fourth in the lateral right lower quadrant. The patient was tilted to an approximately 15 degree reverse Trendelenburg position and rolled slightly to the left. The [employer] patient cart was brought into position and the camera port was docked. The camera was inserted and targeting took place in the right upper quadrant. The additional robotic arms were then docked. A Force bipolar and Prograf were placed on the right and a hook cautery in the left upper quadrant. I then moved to the control console to proceed with the surgery. The edge of the liver was elevated and the gallbladder was identified. The gallbladder was full but not tightly distended and did not appear acutely inflamed. There were a few adhesions of the omentum to the gallbladder. These were lysed with the cautery. The gallbladder was further elevated and dissection was begun in the region of the gallbladder neck. The pericholecystic tissues were carefully dissected and peeled away. The cystic duct was clearly identified and this was doubly cleaned clipped with hemoclips and divided. The cholecystic artery was also clearly identified and this was doubly clipped and divided. The gallbladder was then dissected free from the gallbladder bed using cautery dissection. The gallbladder was not perforated in the course of dissection. The gallbladder was placed in a specimen retrieval pouch. The right upper quadrant was irrigated and inspected. There was no evidence of bleeding or bile leak. The robotic instruments were removed. The robot was undocked and the patient cart pull aside. The patient was returned to a flat position. The abdomen was deflated and the trocars were removed. The gallbladder was recovered through the supraumbilical site. It was necessary to extend the incision to approximately 3.5 cm and also to open the fascia along the midline to allow passage of the gallbladder. There was one stone approximately 2 cm in diameter noted. The gallbladder was sent for permanent pathology. The fascia at the midline was closed with interrupted simple sutures of #2-0 Vicryl. The skin incisions were all closed with buried #4-0 Vicryl and Dermabond. The patient had not shown any tendency to abnormal bleeding during the procedure. She was awakened in the operating room, extubated and moved to the recovery room in stable condition.
== END 2020-03-12 20:38 | disposition home or self-care (01) ==
LOC: M SDC 08:59
PROVIDERS: ATTEND Surgery
DX: K80.10 Calculus of gallbladder with chronic cholecystitis without obstruction (principal); E03.9 Hypothyroidism, unspecified; D69.1 Qualitative platelet defects; L40.50 Arthropathic psoriasis, unspecified; M19.90 Unspecified osteoarthritis, unspecified site; M85.08 Fibrous dysplasia (monostotic), other site; M86.9 Osteomyelitis, unspecified; G43.909 Migraine, unspecified, not intractable, without status migrainosus; Z79.899 Other long term (current) drug therapy; Z88.5 Allergy status to narcotic agent; Z87.891 Personal history of nicotine dependence
CPT/HCPCS: 36415; 47562; 85576; 88304; J0131; J1100; J1170; J2250; J2405; J2597; J2765; J3010

== ENCOUNTER → 2020-04-11 | Outpatient (CLI) | payer MEDICARE, MEDICAID ==
[~2020-04-11] MED LIST changes: +D31000TA2 PO; -DESMOPRESSIN ACETATE IV ONE; -LIDOCAINE 1% MDV 20ML VIAL SQ PRN; -LR 1,000 ML IV SCH; +NORC1TAB7 PO; -NS IV ONE; -VITAD1000T PO
--- NOTE | 2020-04-12 03:17 | REP ---
BILATERAL MAMMOGRAM WITH 3D TOMOSYNTHESIS, LEFT BREAST ULTRASOUND: HISTORY: Pain left breast for 1 month. No family history of breast cancer. Tyrer-Cuzick lifetime risk of breast cancer 12.3%. Baseline exam. MLO and CC views of both breasts performed. 3D tomosynthesis was utilized. Very mild scattered fibroglandular tissue is seen symmetrically bilaterally. Volpara breast density is A. There is no mass or clustered microcalcifications. Real-time sonographic evaluation of left breast performed between 10 and 12 o'clock near the nipple, where the patient complains of pain. No cystic or solid nodule is seen. IMPRESSION: ACR 1, negative. No mass or clustered microcalcifications. No mammographic or sonographic abnormality in the region of left breast pain 10-12 o'clock near the nipple. Clinical correlation and followup recommended. BIRADS 1: BI-RADS/ACR category 1 mammogram. Negative Mammogram. This mammogram was interpreted with the aid of an FDA-approved computer-aided detection system. The patient states she/he had a clinical breast exam in 03/2020. The patient letter being requested is M2. Edited: [facility] 04/12/2020 [id number]
== END ==
LOC: M WHC 14:36
PROVIDERS: ATTEND Nurse Practitioner Women's Health
DX: N64.4 Mastodynia (principal)
CPT/HCPCS: 76642; 77066; G0279

== ENCOUNTER → 2021-07-16 | Outpatient (REF) | payer MEDICARE, MEDICAID | LOC: M LAB REF 19:58 | PROVIDERS: ATTEND Physician Assistant | DX: J02.9 Acute pharyngitis, unspecified (principal) ==

== ENCOUNTER → 2022-05-22 | Outpatient (CLI) | payer MEDICARE, MEDICAID ==
[~2022-05-22] MED LIST changes: -D31000TA2 PO; +VITA100093 PO
== END ==
LOC: M PLARAD 09:05
PROVIDERS: ATTEND Physician Assistant Surgical
DX: M67.432 Ganglion, left wrist (principal)

== ENCOUNTER → 2023-06-24 | Outpatient (CLI) | payer MEDICARE, MEDICAID ==
[~2023-06-24] MED LIST changes: +APRE30TA3 PO; -OTEZ1TAB3 PO
== END ==
LOC: M RAD 07:49
PROVIDERS: ATTEND Orthopaedic Surgery
DX: M85.052 Fibrous dysplasia (monostotic), left thigh (principal); M89.9 Disorder of bone, unspecified; M25.552 Pain in left hip; G89.29 Other chronic pain
CPT/HCPCS: 78315; A9503